=== PATIENT | male | born 1990 | race Hispanic/Latino ===

== ENCOUNTER 2019-07-28 13:12 | Emergency (ER) | payer OTHER ==
[2019-07-28] MEDS ORDERED: Proparacaine 0.5% Opth 15 ML BOT ONE (14:27)
[2019-07-28] MEDS ORDERED: Fluorescein Opthalmic Strip ONE (14:27)
== END 2019-07-28 15:22 ==
LOC: ERS 13:12 → EEVIPCON 13:12 → ERS 15:22
DX: H53.8 Other visual disturbances (principal); Z77.098 Contact with and (suspected) exposure to other hazardous, chiefly nonmedicinal, chemicals
CPT/HCPCS: 99284

== ENCOUNTER 2021-09-27 14:14 | Emergency (ER) | payer OTHER | END 2021-09-27 14:40 | disposition left against medical advice (07) | LOC: ERS 14:14 | DX: Z53.21 Procedure and treatment not carried out due to patient leaving prior to being seen by health care provider (principal) ==

== ENCOUNTER 2021-12-07 14:48 | Emergency (ER) | payer OTHER ==
[2021-12-07] MEDS ORDERED: Ketorolac Tromethamine 30 MG/ML VIAL ONE (16:49)
[2021-12-07] MEDS ORDERED: Lidocaine Viscous Sol 2% 15 ml UD Cup ONE (16:51)
[2021-12-07] MEDS ORDERED: Bupivacaine 0.5% 10 ML VIAL ONE (16:51)
== END 2021-12-07 18:14 | disposition home or self-care (01) ==
LOC: ERS 14:48
DX: K08.89 Other specified disorders of teeth and supporting structures (principal)
CPT/HCPCS: 64400; 96372; J1885; J3490

== ENCOUNTER 2024-01-23 14:22 | Emergency (ER) | payer SELFPAY ==
[2024-01-23 15:36] LABS: #Basophils 0.05 10x3/uL (0.0-0.2); %Basophils 0.6 % (0.0-1.0); %Eosinophils 3.7 % (0.0-10.0); %Lymphocytes 21.1 % (21.0-51.0); %Monocytes 5.4 % (0.0-10.0); %Neutrophils 68.9 % (42.0-75.0); Hematocrit 44.2 % (42.0-52.0); Hemoglobin 14.8 g/dL (14.0-18.0); Mean Corpuscular HGB CONC 33.5 g/dL (32.0-36.0); Mean Corpuscular Hemoglobin 29.6 pg (27.0-31.0); Mean Corpuscular Volume 88.4 fL (78.0-98.0); Mean Platelet Volume 9.5 fL (7.4-10.4); Platelet Count 303 10x3/uL (130-400); RBC Distribution Width 12.7 % (11.5-14.5)
[2024-01-23] MEDS ORDERED: Dicyclomine 20 MG/2 ML VIAL ONE (15:47)
[2024-01-23] MEDS ORDERED: Ondansetron ODT 4 MG TAB ONE (15:47)
[2024-01-23 16:01] LABS: ALT (SGPT) 243 U/L (8-55); AST (SGOT) 143 U/L (5-34); Albumin 3.5 g/dL (3.5-5.0); Alkaline Phosphatase 63 U/L (40-110); Anion Gap 13 mmol/L (10-20); BUN (Urea Nitrogen) 8 mg/dL (8.9-20.6); Bilirubin, Total 1.5 mg/dL (0.2-1.2); Calc. Creatinine Clearance 0 mL/min (70-130); Calcium 8.5 mg/dL (7.8-10.44); Carbon Dioxide 22 mmol/L (22-29); Chloride 108 mmol/L (98-107); Estimated GFR 116; Globulin 2.6 g/dL (2.4-3.5); Glucose 108 mg/dL (70-105); Lipase 42 U/L (8-78); Potassium 3.8 mmol/L (3.5-5.1); Protein, Total 6.1 g/dL (6.0-8.3); Sodium 139 mmol/L (136-145)
== END 2024-01-23 16:48 | disposition home or self-care (01) ==
LOC: ERS 14:22
DX: R10.11 Right upper quadrant pain (principal); R11.2 Nausea with vomiting, unspecified
CPT/HCPCS: 36415; 76705; 80053; 83690; 85025; 96372; Q0162